=== PATIENT | female | born 1935 | race Caucasian/White ===

== ENCOUNTER 2019-05-31 10:30 | Inpatient (IN) ==
[2019-05-31] MEDS ORDERED: 0.9 % SODIUM CHLORIDE 1,000 ML IV ONE ×2 (10:51→14:43)
--- NOTE | 2019-05-31 10:55 | Emergency Department Note ---
Weakness HPI - General Chief complaint: Weakness Stated complaint: weakness Time Seen by Provider: 05/31/19 10:51 Source: patient, family, old records reviewed Mode of arrival: ambulatory Limitations: altered mental status - History of Present Illness HPI Narrative: 84-year-old female comes in from skilled nursing [place] for altered mental status hypoxia. Oxygen levels there were measured 54 to 72% with cyanosis of the hands and feet. She has not been swallowing well; underlying history of dementia. Blood pressure is a little bit high today pulse is low. He is on Coumadin for chronic atrial fibrillation. She fell yesterday and is now wheelchair-bound. On the left side she is struggling with movement. Globally weak. All history is from her [id number] who was present for the interview and exam. I cannot get any meaningful history or review of systems from the patient. All of her answers are nonsensical. She is globally weak She was actually seen yesterday at [facility] in the ER by Dr. Stark and jordan. Note. CT scan of the head and neck were negative at that time. She was diagnosed with UTI and placed on Keflex-she has received 1 dose of this - Related Data Home Medications Medication Instructions Recorded Confirmed amino acid-multivit w/iron-min 1 tab PO QAM tab 03/25/19 cholecalciferol (vitamin D3) 25 1,000 unit PO QDAY 03/25/19 03/25/19 mcg (1,000 unit) capsule cyanocobalamin (vitamin B-12) 1,000 mcg IM .q3w ml 03/25/19 03/25/19 1,000 mcg/mL injection solution levothyroxine 75 mcg tablet 75 mcg PO QDAY 03/25/19 03/25/19 lisinopril 10 mg tablet 10 mg PO QDAY 03/25/19 03/25/19 melatonin 3 mg tablet 3 mg PO HS PRN 03/25/19 03/25/19 memantine 5 mg tablet 5 mg PO BID tab 03/25/19 03/25/19 metformin 500 mg tablet 500 mg PO BID 03/25/19 03/25/19 omega-3 fatty acids 1,000 mg 1,000 mg PO QDAY 03/25/19 03/25/19 capsule warfarin 3 mg tablet 3 mg PO QDAY 03/25/19 03/25/19 Previous Rx's Medication Instructions Recorded warfarin 3 mg tablet 3 mg PO Q OTHER DAY #30 tab 04/18/19 warfarin 3 mg tablet 4.5 mg PO Q OTHER DAY #30 tab 04/18/19 Allergies Allergy/AdvReac Type Severity Reaction Status Date / Time Sulfa (Sulfonamide Allergy Unknown Unknown Verified 03/25/19 09:58 Antibiotics) Review of Systems Limitations: ROS unobtainable due to patients medical condition Past Medical History - Past Medical History [facility] Narrative: Family History (Last Reviewed 03/25/19 @ 10:03 by Maricarmen Kim PA-C) Sister Arthritis Mother Dementia Father Stroke Medical History (Last Reviewed 03/25/19 @ 10:03 by Maricarmen Kim PA-C) Hearing loss (Chronic) Macular degeneration (Chronic) Thyroid gland disease (Chronic) Stroke (Chronic ~02/2019) High blood pressure (Chronic ~2016) Arrhythmia (Chronic ~2016) Type 2 diabetes mellitus (Chronic ~2015) Non-Hodgkins lymphoma (Chronic ~2012) Arthritis (Chronic ~1999) Past Surgical History (Last Reviewed 03/25/19 @ 10:03 by Maricarmen Kim PA-C) History of bladder surgery (Chronic) History of colonoscopy (Chronic) History of thyroidectomy (Chronic) Source: old records reviewed, obtained from family Medical history: Reports: atrial fibrillation, CVA, dementia, DM, hypertension, hypothyroidism, osteoporosis - Social History smoking status: Never smoker Physical Exam Thin female no acute distress resting comfortably. Normocephalic atraumatic. Conjunctive are laterally injected. No icterus. No nasal discharge or congestion. Oropharynx pink and moist. Neck is supple without lymphadenopathy thyromegaly. Heart is irregularly irregular rhythm consistent with her known atrial fibrillation. I do not hear significant murmur. Lungs are clear to auscultation bilaterally without wheezes rales rhonchi or respiratory distress. Abdomen is soft nontender nondistended. I palpated her right hip joint and I do not detect any pain there. The right leg is a little bit shortened compared to the left approximately half inch or so it is not externally rotated however. She does have a bruised area at the thenar eminence on her left. He does have some mild cyanosis to her ankles but I do not see significant edema. She is alert awake but she cannot answer any questions with any kind of appropriate words-nonsensical and inappropriate Limitations: no limitations Course Vital Signs Blood Pressure 151/138 05/31/19 10:31 Pulse Oximetry (%) 94 05/31/19 10:31 Pulse Rate 119 H 05/31/19 13:01 Respiratory Rate 17 05/31/19 14:01 Blood Pressure 183/111 05/31/19 14:01 Pulse Oximetry (%) 96 05/31/19 13:01 Weakness - Lab Data Lab results reviewed: Yes I reviewed the patient's lab results. Result diagrams: 05/31/19 11:00 05/31/19 12:35 Lab Results 05/31/19 05/31/19 05/31/19 Range/Units 11:00 11:00 11:00 WBC 11.3 H (4.5-11.0) K/mcL RBC 4.91 (4.00-5.20) M/mcL Hgb 15.4 H (12.0-15.0) g/dL Hct 46.7 (36.0-48.0) % POC Hct 48.0 (36.0-48.0) % MCV 95.0 (80.0-100.0) fL MCH 31.3 (26.0-34.0) pg MCHC 32.9 (31.0-36.0) g/dL RDW 15.2 H (11.5-14.5) % Plt Count 222 (140-440) K/mcL MPV 8.5 (7.4-10.4) fL Gran % 86.2 H (38.0-78.0) % Lymph % (Auto) 7.3 L (15.5-49.0) % [place] % (Auto) 6.3 (1.0-12.0) % Eos % (Auto) 0.1 (0.0-7.0) % Baso % (Auto) 0.1 (0.0-2.0) % Gran # 9.7 H (1.8-8.0) K/mcL Lymph # (Auto) 0.8 L (1.5-4.8) K/mcL [place] # (Auto) 0.7 (0.1-0.9) K/mcL Eos # (Auto) 0 (0.0-0.7) K/mcL Baso # (Auto) 0 (0.0-0.3) K/mcL PT 19.2 H (11.9-14.5) sec INR 1.6 H (0.9-1.1) VBG Lactic Acid (0.5-2.0) mmol/L POC Sodium 133 (133-145) mmol/L Sodium TNP POC Potassium 4.7 (3.3-5.1) mmol/L Potassium TNP POC Chloride 99 (96-108) mmol/L Chloride TNP Carbon Dioxide TNP POC Total CO2 22 (22-30) mmol/L Anion Gap TNP POC BUN 42 H (8-23) mg/dl BUN TNP Creatinine TNP POC Creatinine 1.1 (0.6-1.1) mg/dl GFR Calculation TNP Glucose TNP POC Glucose 262 H (70-105) mg/dL Calcium TNP POC WB Ioniz Calcium 1.02 L (1.16-1.32) mmol/L Magnesium 1.4 L (1.6-2.5) mg/dL Total Bilirubin TNP AST TNP ALT TNP Alkaline Phosphatase TNP Total Protein TNP Albumin TNP Globulin TNP Albumin/Globulin Ratio TNP Urine Color Urine Appearance Urine pH (5.0-9.0) Ur Specific [place] (1.000-1.035) Urine Protein (NEG) mg/dL Urine Glucose (UA) (NEG) mg/dL Urine Ketones (NEG) mg/dL Urine Occult Blood (<0.03) mg/dL Urine Nitrate (NEG) Urine Bilirubin (NEG) mg/dL Urine Urobilinogen (NEG) mg/dL Ur Leukocyte Esterase (NEG) /uL Urine RBC (0-1) /hpf Urine WBC (0-4) /hpf Ur Squamous Epith Cells (0-4) /hpf Urine Bacteria (0) /hpf Hyaline Casts (0-2) /lpf Urine Mucus (0) /hpf Ur Culture Indicated? 05/31/19 05/31/19 05/31/19 Range/Units 11:00 11:50 12:35 WBC (4.5-11.0) K/mcL RBC (4.00-5.20) M/mcL Hgb (12.0-15.0) g/dL Hct (36.0-48.0) % POC Hct (36.0-48.0) % MCV (80.0-100.0) fL MCH (26.0-34.0) pg MCHC (31.0-36.0) g/dL RDW (11.5-14.5) % Plt Count (140-440) K/mcL MPV (7.4-10.4) fL Gran % (38.0-78.0) % Lymph % (Auto) (15.5-49.0) % [place] % (Auto) (1.0-12.0) % Eos % (Auto) (0.0-7.0) % Baso % (Auto) (0.0-2.0) % Gran # (1.8-8.0) K/mcL Lymph # (Auto) (1.5-4.8) K/mcL [place] # (Auto) (0.1-0.9) K/mcL Eos # (Auto) (0.0-0.7) K/mcL Baso # (Auto) (0.0-0.3) K/mcL PT (11.9-14.5) sec INR (0.9-1.1) VBG Lactic Acid 2.3 H (0.5-2.0) mmol/L POC Sodium (133-145) mmol/L Sodium 136 POC Potassium (3.3-5.1) mmol/L Potassium 4.4 POC Chloride (96-108) mmol/L Chloride 92 L Carbon Dioxide 23 POC Total CO2 (22-30) mmol/L Anion Gap 21.0 H POC BUN (8-23) mg/dl BUN 30 H Creatinine 1.2 H POC Creatinine (0.6-1.1) mg/dl GFR Calculation 41 Glucose 227 H POC Glucose (70-105) mg/dL Calcium 9.9 POC WB Ioniz Calcium (1.16-1.32) mmol/L Magnesium (1.6-2.5) mg/dL Total Bilirubin 0.9 AST 24 ALT 21 Alkaline Phosphatase 85 Total Protein 8.4 Albumin 4.3 Globulin 4.1 H Albumin/Globulin Ratio 1.0 Urine Color Yellow Urine Appearance Cloudy Urine pH 5.0 (5.0-9.0) Ur Specific [place] 1.015 (1.000-1.035) Urine Protein >=500 A (NEG) mg/dL Urine Glucose (UA) 50 A (NEG) mg/dL Urine Ketones 20 A (NEG) mg/dL Urine Occult Blood 0.03 A (<0.03) mg/dL Urine Nitrate Neg (NEG) Urine Bilirubin Neg (NEG) mg/dL Urine Urobilinogen Neg (NEG) mg/dL Ur Leukocyte Esterase 500 A (NEG) /uL Urine RBC 6 H (0-1) /hpf Urine WBC > 182 H (0-4) /hpf Ur Squamous Epith Cells 1 (0-4) /hpf Urine Bacteria Mod A (0) /hpf Hyaline Casts 6 H (0-2) /lpf Urine Mucus Few (0) /hpf Ur Culture Indicated? Yes ABG shows a pH of 7.54 PCO2 26 PO2 86 which is consistent with hyperventilation- she is not requiring oxygen at this time - Radiology Data Radiology results reviewed: Yes I reviewed the patient's radiology results. Chest x-ray with atelectasis chronic bronchitis Right hip x-ray essentially normal - EKG Data EKG attestation: Yes I reviewed and interpreted this EKG., Yes There are no EKG findings of acute coronary syndrome, Yes This EKG will be read by senior control systems engineer EKG results narrative: EKG shows a rate of 132 atrial fibrillation with rapid ventricular response. LVH criteria with secondary repolarization Disposition Pt seen by DRUM STOCK CLERK/PA only: No Clinical Impression: UTI (urinary tract infection) Qualifiers: Urinary tract infection type: acute cystitis Hematuria presence: with hematuria Qualified Code(s): N30.01 - Acute cystitis with hematuria A-fib Qualifiers: Atrial fibrillation type: longstanding persistent Qualified Code(s): I48.11 - Longstanding persistent atrial fibrillation Summary: Partially treated UTI here now with hypoxia per report. We will check a chest x-ray to rule out pneumonia which could be aspiration. Additionally she has a hip issue which may or may not be fractured however this is less likely given her exam. Her right leg is foreshortened but not externally rotated not particularly painful on exam. I will not repeat the CT of the head and neck as these were negative yesterday at [facility]. Laboratory is ordered as is chest x-ray and x-ray of the hip. Start IV fluids blood cultures and give IV antibiotics We will monitor her atrial fibrillation and treat rapid ventricular response if needed She remained stable during her ER stay here but she has failed outpatient therapy with clear evidence of a UTI here. Rocephin given here Discussed case with Dr. Caldwell, hospitalist. He agreed to accept the patient for further care and evaluation here in the hospital for complicated UTI with altered mental status. Disposition: Xfer As Inpt ([facility]) Condition: Fair Referrals: Maricarmen Kim PA-C [Primary Care Provider] -
[2019-05-31] MEDS ORDERED: cefTRIAXone 1 GM VIAL IV ONE (11:04)
[2019-05-31 11:10] LABS: POC Blood Urea Nitrogen 42 mg/dl (8-23); POC CO2 22 mmol/L (22-30); POC Calcium, Ionized 1.02 mmol/L (1.16-1.32); POC Chloride 99 mmol/L (96-108); POC Creatinine 1.1 mg/dl (0.6-1.1); POC Glucose, Random 262 mg/dL (70-105); POC Potassium 4.7 mmol/L (3.3-5.1); POC Sodium 133 mmol/L (133-145)
--- NOTE | 2019-05-31 11:47 | XRay Report ---
CLINICAL INFORMATION: fall, hip pain COMPARISON: None. FINDINGS: No fracture or other osseous abnormality appreciated. Both SI and hip joints are normal in width and alignment without arthritic change. Soft tissues normal IMPRESSION: Normal Interpreted and Authenticated by: Hugo Torre 05/31/19
--- NOTE | 2019-05-31 11:48 | XRay Report ---
CLINICAL INFORMATION: hypoxia , altered mental status COMPARISON: None. FINDINGS: The heart is mildly enlarged. Mediastinum and pulmonary vessels are normal. Chronic bronchitis appreciated. There is minor atelectasis in the right base, but the remainder lungs are clear. No effusions. Bones and soft tissues normal. IMPRESSION: Mild cardiomegaly - no evidence of CHF Minor right basilar atelectasis Chronic bronchitis Interpreted and Authenticated by: Hugo Torre 05/31/19
[2019-05-31 11:56] LABS: INR 1.6 (0.9-1.1); Prothrombin Time 19.2 sec (11.9-14.5)
[2019-05-31 12:01] LABS: Basophils # (Auto) 0 K/mcL (0.0-0.3); Basophils % (Auto) 0.1 % (0.0-2.0); Eosinophils # (Auto) 0 K/mcL (0.0-0.7); Eosinophils % (Auto) 0.1 % (0.0-7.0); Granulocytes % (Auto) 86.2 % (38.0-78.0); Hematocrit 46.7 % (36.0-48.0); Hemoglobin 15.4 g/dL (12.0-15.0); Lymphocytes # (Auto) 0.8 K/mcL (1.5-4.8); Lymphocytes % (Auto) 7.3 % (15.5-49.0); Mean Corpuscular HGB Conc 32.9 g/dL (31.0-36.0); Mean Platelet Volume 8.5 fL (7.4-10.4); Monocytes # (Auto) 0.7 K/mcL (0.1-0.9); Monocytes % (Auto) 6.3 % (1.0-12.0); Platelet Count 222 K/mcL (140-440); RBC 4.91 M/mcL (4.00-5.20); Red Cell Distribution Width 15.2 % (11.5-14.5); WBC 11.3 K/mcL (4.5-11.0)
[2019-05-31 12:51] LABS: Appearance,Urine CLOUDY; Bacteria,Urine MOD /hpf (0); Bilirubin,Urine NEG (NEG); Color,Urine YELLOW; Culture Indicated,Urine YES; Glucose,Urine (UA) 50 mg/dL (NEG); Ketones,Urine 20 mg/dL (NEG); Leukocyte Esterase,Urine 500 /uL (NEG); Mucus,Urine FEW /hpf (0); Nitrate,Urine NEG (NEG); Protein,Urine >=500 mg/dL (NEG); Specific Gravity,Urine 1.015 (1.000-1.035); Urine Blood 0.03 mg/dL (<0.03); Urine Hyaline Cast 6 /lpf (0-2); Urine RBC 6 /hpf (0-1); Urine Squamous Epithelial Cell 1 /hpf (0-4); Urine WBC > 182 /hpf (0-4); Urobilinogen,Urine NEG (NEG)
[2019-05-31 13:41] LABS: ALT/SGPT 21 U/l (0-40); AST/SGOT 24 U/l (0-37); Albumin 4.3 gm/dL (3.2-5.2); Alkaline Phosphatase 85 U/L (39-117); Bilirubin,Total 0.9 mg/dL (0.0-1.0); Blood Urea Nitrogen 30 mg/dl (8-23); Calcium 9.9 mg/dl (8.6-10.4); Globulin 4.1 gm/dL (2.2-3.7); Glomerular Filtration Rate 41; Glucose 227 mg/dL (70-105)
[2019-05-31 13:44] LABS: Carbon Dioxide 23 mmol/L (22-30); Chloride 92 mmol/L (96-108)
[2019-05-31] MEDS ORDERED: MAGNESIUM SULFATE 2 GM/50 ML BAG IV ONE (14:37)
--- NOTE | 2019-05-31 14:56 | Internal Med History&Physical ---
Medical - H&P: [facility] Patient information: Note initiated : 05/31/19 at 2:54 pm Service Date, if different from initiated Date: [] Patient: Bel Dudley 84 y/o F admitted on for weakness. Chief Complaint: [] History of present illness: Ms. Dudley is a 84 year old F Who fell recently and was brought into the ED at [facility] where she was evaluated had CT of the head and neck which were negative. She was found to have a UTI and was recommended to be in a wheelchair for the next few days. Sent back in from [place] for worsening altered mental status and hypoxia. However her oxygen saturations were mid mid 90s on room air while here. She was have not found to have a UTI and volume depleted. She did have a brief episode of A. fib RVR which resolved on its own. She is also low on her magnesium. And her lactate was mildly elevated. Chest x-ray with some atelectasis but otherwise unremarkable. History is obtained from chart as patient is unable to give any history given her dementia and current state. Also had x-ray of the hip which was unremarkable. Unable to gather review of systems given her underlying dementia Medical - H&P: H Medical history: Medical History (Last Reviewed 03/25/19 @ 10:03 by Maricarmen Kim PA-C) Hearing loss (Chronic) Macular degeneration (Chronic) Thyroid gland disease (Chronic) Stroke (Chronic ~02/2019) High blood pressure (Chronic ~2016) Arrhythmia (Chronic ~2016) Type 2 diabetes mellitus (Chronic ~2015) Non-Hodgkins lymphoma (Chronic ~2012) Arthritis (Chronic ~1999) Past Surgical History (Last Reviewed 03/25/19 @ 10:03 by Maricarmen Kim PA-C) History of bladder surgery (Chronic) History of colonoscopy (Chronic) History of thyroidectomy (Chronic) Family History (Last Reviewed 03/25/19 @ 10:03 by Maricarmen Kim PA-C) Sister Arthritis Mother Dementia Father Stroke Social History (Last Updated 03/25/19 @ 10:36 by Maricarmen Kim PA-C) She resides at [facility] living [facility] She is wheelchair-bound since falling the other day, unknown what her underlying functional status is. Medical - H&P: Meds Home Medications Medication Instructions Recorded Confirmed Type amino acid-multivit w/iron-min 1 tab PO QAM tab 10/15/19 History cholecalciferol (vitamin D3) 25 1,000 unit PO QDAY 03/25/19 03/25/19 History mcg (1,000 unit) capsule cyanocobalamin (vitamin B-12) 1,000 mcg IM .q3w ml 03/25/19 03/25/19 History 1,000 mcg/mL injection solution levothyroxine 75 mcg tablet 75 mcg PO QDAY 03/25/19 03/25/19 History lisinopril 10 mg tablet 10 mg PO QDAY 03/25/19 03/25/19 History melatonin 3 mg tablet 3 mg PO HS PRN 03/25/19 03/25/19 History memantine 5 mg tablet 5 mg PO BID tab 03/25/19 03/25/19 History metformin 500 mg tablet 500 mg PO BID 03/25/19 03/25/19 History omega-3 fatty acids 1,000 mg 1,000 mg PO QDAY 03/25/19 03/25/19 History capsule warfarin 3 mg tablet 3 mg PO QDAY 03/25/19 03/25/19 History warfarin 3 mg tablet 3 mg PO Q OTHER DAY #30 tab 04/18/19 Rx warfarin 3 mg tablet 4.5 mg PO Q OTHER DAY #30 tab 04/18/19 Rx Allergies Allergy/AdvReac Type Severity Reaction Status Date / Time Sulfa (Sulfonamide Allergy Unknown Unknown Verified 03/25/19 09:58 Antibiotics) Medical - H&P: Exam - Constitutional Vitals: Pulse Resp BP Pulse Ox 119 H 17 183/111 96 05/31/19 13:01 05/31/19 14:01 05/31/19 14:01 05/31/19 13:01 Exam: General: Awake, No acute Distress Eyes/N/T: EOMI, PERRL, dMM Head/Neck: neck supple, normocephalic atraumatic CV: irreg irreg, No murmurs, Pulm: Clear b/l, no wheezing/rhonchi/rales Abd: soft, nontender, +BS x4 Ext: no clubbing/cyanosis/edema Neuro: She is awake and moves all extremities spontaneously, does not verbalize any meaningful responses and does not really follow commands Skin: warm/dry Medical - H&P: Reslt - Labs CBC & Chem 7: 05/31/19 11:00 05/31/19 12:35 Labs: Short CBC 05/31/19 Range/Units 11:00 WBC 11.3 H (4.5-11.0) K/mcL Hgb 15.4 H (12.0-15.0) g/dL Hct 46.7 (36.0-48.0) % Plt Count 222 (140-440) K/mcL BMP 05/31/19 05/31/19 11:00 12:35 Sodium TNP 136 Potassium TNP 4.4 Chloride TNP 92 L Carbon Dioxide TNP 23 BUN TNP 30 H Creatinine TNP 1.2 H Glucose TNP 227 H Calcium TNP 9.9 Liver Function 05/31/19 05/31/19 Range/Units 11:00 12:35 Total Bilirubin TNP 0.9 AST TNP 24 ALT TNP 21 Alkaline Phosphatase TNP 85 Albumin TNP 4.3 Urine 05/31/19 Range/Units 11:50 Urine Color Yellow Urine Appearance Cloudy Urine pH 5.0 (5.0-9.0) Ur Specific [place] 1.015 (1.000-1.035) Urine Protein >=500 A (NEG) mg/dL Urine Glucose (UA) 50 A (NEG) mg/dL Medical - H&P: A/P - Narrative A/P Narrative: A: *UTI, complicated with severe weakness, acute on chronic AMS, and lactic acidosis *Sepsis: *Afib rvr: resolved in ED *Hypomagnesemia: *PETER on CKD III: *Volume depletion: *Dementia: *Hypothyroidism: *HTN: * P: -IVF -Rocephin, pending UC -Replace electrolytes - -Continue home lisinopril, as needed BP meds -start BB and prn IV -Check A1c, SSI -pt/ot -ppx: Warfarin per pharmacy
[2019-05-31] MEDS ORDERED: DEXTROSE 50% 50 ML VIAL IV PRN (16:54)
[2019-05-31] MEDS ORDERED: POTASSIUM CHLORIDE 20 MEQ TABLET PO PRN (16:54)
[2019-05-31] MEDS ORDERED: SENNOSIDES 1 TABLET PO PRN (16:54)
[2019-05-31] MEDS ORDERED: IPRATROPIUM/ALBUTEROL 3 ML AMPUL.NEB NEB PRN (16:54)
[2019-05-31] MEDS ORDERED: POTASSIUM CHLORIDE 40 MEQ in DEXTROSE 5% IN WATER 500 ML IV PRN (16:54)
[2019-05-31] MEDS ORDERED: ENOXAPARIN 30 MG/0.3 ML SYRINGE SQ SCH (16:54)
[2019-05-31] MEDS ORDERED: POLYETHYLENE GLYCOL 3350 17 GM PACKET PO PRN (16:54)
[2019-05-31] MEDS ORDERED: DEXTROSE 31 GM ORAL.SUSP PO PRN (16:54)
[2019-05-31] MEDS ORDERED: cefTRIAXone 1 GM in DEXTROSE 5% IN WATER 50 ML IV SCH (16:54)
[2019-05-31] MEDS ORDERED: ACETAMINOPHEN 325 MG TABLET PO PRN (16:54)
[2019-05-31] MEDS ORDERED: METOPROLOL TARTRATE 25 MG TABLET PO SCH (16:54)
[2019-05-31] MEDS ORDERED: MAGNESIUM SULFATE 2 GM/50 ML BAG IV PRN (16:54)
[2019-05-31] MEDS ORDERED: METOPROLOL TARTRATE 5 MG/5 ML VIAL IV PRN (16:54)
[2019-05-31] MEDS ORDERED: ONDANSETRON 4 MG/2 ML VIAL IV PRN (16:54)
[2019-05-31] MEDS: 0.9 % SODIUM CHLORIDE 1,000 ML IV SCH (17:21)
[2019-05-31] MEDS ORDERED: MELATONIN 3 MG TABLET PO PRN (17:24)
[2019-05-31] MEDS ORDERED: WARFARIN 3 MG TABLET PO SCH (17:30)
[2019-05-31] MEDS ORDERED: METOPROLOL TARTRATE 5 MG/5 ML VIAL IV ONE (17:39)
[2019-05-31] MEDS: 0.9 % SODIUM CHLORIDE 10 ML SYRINGE IV SCH ×2 (17:40→21:17)
[2019-05-31 17:52] LABS: Hemoglobin A1C 8.6 % HGB (4.0-6.0)
[2019-05-31] MEDS ORDERED: WARFARIN 3 MG TABLET PO ONE (18:30)
[2019-05-31] MEDS ORDERED: METOPROLOL TARTRATE 25 MG TABLET ONE (18:42)
[2019-05-31] MEDS: INSULIN LISPRO 1 UNIT/0.01 ML UNIT SQ SCH ×2 (18:44→21:15)
[2019-05-31] MEDS: DOCUSATE SODIUM 100 MG CAPSULE PO SCH (21:13)
[2019-05-31] MEDS: LABETALOL 5 MG/ML ML IV PRN (22:05)
[2019-06-01] MEDS: LABETALOL 5 MG/ML ML IV PRN ×3 (00:19→04:56)
[2019-06-01] MEDS: 0.9 % SODIUM CHLORIDE 10 ML SYRINGE IV SCH ×3 (04:48→20:25)
[2019-06-01] MEDS: METOPROLOL SUCCINATE 50 MG TAB.XL.24H PO SCH ×2 (04:57→09:04)
[2019-06-01 06:23] LABS: Basophils # (Auto) 0 K/mcL (0.0-0.3); Basophils % (Auto) 0.1 % (0.0-2.0); Eosinophils # (Auto) 0.1 K/mcL (0.0-0.7); Eosinophils % (Auto) 1.5 % (0.0-7.0); Granulocytes % (Auto) 75.5 % (38.0-78.0); Hematocrit 40.8 % (36.0-48.0); Hemoglobin 13.3 g/dL (12.0-15.0); Lymphocytes # (Auto) 1.2 K/mcL (1.5-4.8); Lymphocytes % (Auto) 15.2 % (15.5-49.0); Mean Cell Volume 95.6 fL (80.0-100.0); Mean Corpuscular HGB Conc 32.6 g/dL (31.0-36.0); Mean Platelet Volume 8.3 fL (7.4-10.4); Monocytes # (Auto) 0.6 K/mcL (0.1-0.9); Monocytes % (Auto) 7.7 % (1.0-12.0); Platelet Count 173 K/mcL (140-440); RBC 4.27 M/mcL (4.00-5.20); Red Cell Distribution Width 14.9 % (11.5-14.5); WBC 7.9 K/mcL (4.5-11.0)
[2019-06-01 06:36] LABS: INR 2.5 (0.9-1.1); Prothrombin Time 26.6 sec (11.9-14.5)
[2019-06-01 06:51] LABS: Chloride 96 mmol/L (96-108)
[2019-06-01] MEDS: 0.9 % SODIUM CHLORIDE 1,000 ML IV SCH (06:53)
[2019-06-01 06:57] LABS: ALT/SGPT 17 U/l (0-40); AST/SGOT 25 U/l (0-37); Albumin 3.5 gm/dL (3.2-5.2); Albumin/Globulin Ratio 1.1 (1.0-2.3); Alkaline Phosphatase 71 U/L (39-117); Bilirubin,Direct 0.2 mg/dL (0.0-0.3); Blood Urea Nitrogen 24 mg/dl (8-23); Calcium 8.8 mg/dl (8.6-10.4); Carbon Dioxide 25 mmol/L (22-30); Globulin 3.2 gm/dL (2.2-3.7); Glomerular Filtration Rate 67; Glucose 223 mg/dL (70-105); Lactate Dehydrogenase 216 U/L (94-250); Phosphorous 2.7 mg/dL (2.7-4.5); Triglycerides 70 mg/dl (<150); Uric Acid 5.7 mg/dL (2.5-8.0)
[2019-06-01] MEDS: INSULIN LISPRO 1 UNIT/0.01 ML UNIT SQ SCH ×4 (07:35→20:25)
[2019-06-01] MEDS: LEVOTHYROXINE 75 MCG TABLET PO SCH (07:36)
--- NOTE | 2019-06-01 08:02 | Internal Med Progress Note ---
Medical - PN: Subj Patient information: Note initiated : 06/01/19 at 7:57 am Service Date, if different from initiated Date: [] Patient: Bel Dudley 84 y/o F admitted on 05/31/19 for weakness. Chief Complaint: [] Interval history: Ms. Dudley is a 84 year old F Who fell recently and was brought into the ED at [facility] where she was evaluated had CT of the head and neck which were negative. She was found to have a UTI and was recommended to be in a wheelchair for the next few days. Sent back in from [place] for worsening altered mental status and hypoxia. However her oxygen saturations were mid mid 90s on room air while here. She was have not found to have a UTI and volume depleted. She did have a brief episode of A. fib RVR which resolved on its own. She is also low on her magnesium. A nd her lactate was mildly elevated. Chest x-ray with some atelectasis but otherwise unremarkable. History is obtained from chart as patient is unable to give any history given her dementia and current state. Also had x-ray of the hip which was unremarkable. Unable to gather review of systems given her underlying dementia 06/01 Did have some agitation and yelling last night. Doing well this morning and mentation much improved. Daughter at bedside. Urine culture growing gram- negative bacillus Review of Systems: denies headache/fever/chills/nausea/vomiting/chest or abdominal pain/cough/d yspnea/diarrhea. Otherwise see above. - Constitutional Vitals: Vital Signs Temp Pulse Resp BP Pulse Ox 98.5 F 106 H 16 157/105 97 06/01/19 02:46 06/01/19 06:55 06/01/19 06:55 06/01/19 02:46 06/01/19 06:55 Period Temp Pulse Resp BP Sys/Jara Pulse Ox Last 24 Hr 97.9 F-98.9 F 44-119 13-33 138-188/90-140 93-100 Intake and Output 05/31/19 06/01/19 06/01/19 21:59 05:59 13:59 Intake Total 50 400 1000 Output Total 300 Balance 50 100 1000 Weight 51.71 kg Intake & Output: Intake & Output 05/31/19 06/01/19 06/01/19 21:59 05:59 13:59 Intake Total 50 400 1000 Output Total 300 Balance 50 100 1000 Weight 51.71 kg Intake: IV 50 1000 Sodium Chloride 0.9% 1,000 ml @ 1000 75 mls/hr IV .[id number] [facility] Rx#: [id number] Oral 400 Output: Urine Catheter Amount 300 Other: Urine Appearance Cloudy Clear Clear Uretheral ([place]) Cloudy Cloudy Urine Color Dark Yellow Bright Yellow Dark Yellow Uretheral ([place]) Straw Straw Urine Odor Strong Normal Normal Uretheral ([place]) Foul Exam: General: Awake, No acute Distress Eyes/N/T: EOMI, Head/Neck: neck supple, CV: irreg irreg, No murmurs, Pulm: Clear b/l, no wheezing/rhonchi/rales Abd: soft, nontender, +BS x4 Ext: no clubbing/cyanosis/edema Neuro: Mentation much improved and answering questions appropriately, moves extremities spontaneously Skin: warm/dry Medical - PN: Obj Da - Labs CBC & Chem 7: 06/01/19 04:30 06/01/19 04:30 Labs: Abnormal Lab Results 06/01/19 06/01/19 06/01/19 04:30 04:30 04:30 WBC Hgb RDW 14.9 H Gran % Lymph % (Auto) 15.2 L Gran # Lymph # (Auto) 1.2 L PT 26.6 H INR 2.5 H VBG Lactic Acid Chloride Anion Gap POC BUN BUN 24 H Creatinine Glucose 223 H POC Glucose Hemoglobin A1c POC WB Ioniz Calcium Magnesium Globulin Urine Protein Urine Glucose (UA) Urine Ketones Urine Occult Blood Ur Leukocyte Esterase Urine RBC Urine WBC Urine Bacteria Hyaline Casts 05/31/19 05/31/19 05/31/19 12:35 11:50 11:00 WBC Hgb RDW Gran % Lymph % (Auto) Gran # Lymph # (Auto) PT INR VBG Lactic Acid Chloride 92 L Anion Gap 21.0 H POC BUN BUN 30 H Creatinine 1.2 H Glucose 227 H POC Glucose Hemoglobin A1c 8.6 H POC WB Ioniz Calcium Magnesium Globulin 4.1 H Urine Protein >=500 A Urine Glucose (UA) 50 A Urine Ketones 20 A Urine Occult Blood 0.03 A Ur Leukocyte Esterase 500 A Urine RBC 6 H Urine WBC > 182 H Urine Bacteria Mod A Hyaline Casts 6 H 05/31/19 05/31/19 05/31/19 11:00 11:00 11:00 WBC Hgb RDW Gran % Lymph % (Auto) Gran # Lymph # (Auto) PT 19.2 H INR 1.6 H VBG Lactic Acid 2.3 H Chloride Anion Gap POC BUN 42 H BUN Creatinine Glucose POC Glucose 262 H Hemoglobin A1c POC WB Ioniz Calcium 1.02 L Magnesium 1.4 L Globulin Urine Protein Urine Glucose (UA) Urine Ketones Urine Occult Blood Ur Leukocyte Esterase Urine RBC Urine WBC Urine Bacteria Hyaline Casts 05/31/19 11:00 WBC 11.3 H Hgb 15.4 H RDW 15.2 H Gran % 86.2 H Lymph % (Auto) 7.3 L Gran # 9.7 H Lymph # (Auto) 0.8 L PT INR VBG Lactic Acid Chloride Anion Gap POC BUN BUN Creatinine Glucose POC Glucose Hemoglobin A1c POC WB Ioniz Calcium Magnesium Globulin Urine Protein Urine Glucose (UA) Urine Ketones Urine Occult Blood Ur Leukocyte Esterase Urine RBC Urine WBC Urine Bacteria Hyaline Casts Meds: Medications Acetaminophen (Tylenol) 650 mg PO Q6HP PRN PRN Reason: PAIN/FEVER > 101 Albuterol/Ipratropium (Duoneb) 3 ml NEB Q4HP PRN PRN Reason: Shortness Of Breath Ceftriaxone Sodium (Rocephin) 1 gm IV DAILY [facility] Dextrose (Dextrose 50%) 0 ml IV UD PRN PRN Reason: Hypoglycemia Diagnostic Test (Pha) (Accu-Chek) 1 each FS ACHS [facility] Last Admin: 06/01/19 07:21 Dose: 1 each Documented by: Docusate Sodium (Colace) 100 mg PO BID [facility] Last Admin: 05/31/19 21:13 Dose: 100 mg Documented by: Enoxaparin Sodium (Lovenox) 30 mg SQ DAILY [facility] Stop: 06/02/19 09:01 Last Admin: 05/31/19 18:44 Dose: 30 mg Documented by: Glucose (Insta-Glucose) 15 gm PO PRN PRN PRN Reason: Hypoglycemia Potassium Chloride 40 meq/ (Dextrose) 520 mls @ 130 mls/hr IV UD PRN PRN Reason: Potassium < 3 Magnesium Sulfate (Magnesium Sulfate) 2 gm in 50 mls @ 50 mls/hr IV UD PRN PRN Reason: Magnesium </= 1.6 Sodium Chloride (Sodium Chloride 0.9%) 1,000 mls @ 75 mls/hr IV .[id number] [facility] Stop: 06/01/19 19:33 Last Admin: 06/01/19 06:53 Dose: 75 mls/hr Documented by: Insulin Human Lispro (Humalog) 0 unit SQ ACHS [facility]; Protocol Last Admin: 06/01/19 07:35 Dose: 4 units Documented by: Labetalol HCl (Trandate) 0 mg IV Q2HP PRN PRN Reason: Hypertension Last Admin: 06/01/19 04:56 Dose: 10 mg Documented by: Levothyroxine Sodium (Synthroid) 75 mcg PO ACB [facility] Last Admin: 06/01/19 07:36 Dose: 75 mcg Documented by: Lisinopril (Zestril) 10 mg PO QAM [facility] Melatonin (Melatonin 3mg Tablet) 3 mg PO HSP PRN PRN Reason: Insomnia Memantine (Namenda) 5 mg PO DAILY [facility] Metoprolol Succinate (Toprol Xl) 50 mg PO QAM [facility] Last Admin: 06/01/19 04:57 Dose: 50 mg Documented by: Metoprolol Tartrate (Lopressor) 5 mg IV Q2HP PRN PRN Reason: Tachyarrhythmias HR>110 Ondansetron HCl (Zofran) 4 mg IV Q4HP PRN PRN Reason: Nausea And Vomiting Polyethylene Glycol (Miralax) 17 gm PO DAILYP PRN PRN Reason: Constipation Potassium Chloride (Kdur) 40 meq PO UD PRN PRN Reason: Potssium is 3-3.5 Potassium Chloride (Kdur) 40 meq PO UD PRN PRN Reason: Potassium < 3 Senna (Senokot) 2 tab PO DAILYP PRN PRN Reason: Constipation Sodium Chloride (Saline Flush) 10 ml IV Q8 [facility] Last Admin: 06/01/19 04:48 Dose: Not Given Documented by: Warfarin Sodium (Coumadin Per Pharmacy) 1 order PO DAILY@1400 [facility] Medical - PN: A/P - Time Spent With Patient Total time spent is greater than 50% in coordination of care (as documented) at patient's floor/unit and/or counseling patient: - Narrative A/P Narrative: A: *UTI(GNB), complicated with severe weakness, acute on chronic AMS, and lactic acidosis *Sepsis: -improved *Afib rvr: resolved in ED *Hypomagnesemia: improved *PETER on CKD III: improving *Volume depletion: improved *Dementia, advanced: *Hypothyroidism: *HTN: *DM II: P: -IVF finish -Rocephin, pending UC -Replace electrolytes - -Continue home lisinopril, as needed BP meds -cont home BB and prn IV -SSI, metformin held for now -pt/ot -ppx: Warfarin per pharmacy
[2019-06-01] MEDS: LISINOPRIL 10 MG TABLET PO SCH (09:03)
[2019-06-01] MEDS: MEMANTINE 10 MG TABLET PO SCH (09:03)
[2019-06-01] MEDS: DOCUSATE SODIUM 100 MG CAPSULE PO SCH ×2 (09:03→20:36)
[2019-06-01] MEDS: cefTRIAXone 1 GM VIAL IV SCH (09:04)
--- NOTE | 2019-06-01 12:13 | Discharge Summary ---
Medical - DS: Prov Patient information: Note initiated : 06/01/19 at 12:10 pm Service Date, if different from initiated Date: [] Patient: Bel Dudley 84 y/o F admitted on 05/31/19 for weakness. Chief Complaint: [] Date of admission: 05/31/19 16:20 Discharge date: 06/02/19 Primary care physician: Maricarmen Kim PA-C Consults: 05/31/19 14:39 Consult to Physician [CONS] Stat Comment: Consulting Provider: Jos Caldwell Reason For Exam: Physician to Consult Medical - DS: Meds - Discharge Medications Prescriptions: Ciprofloxacin HCl [Cipro] 500 mg PO BID #6 tab Active and Home Medications: Home Medications amino acid-multivit w/iron-min 1 tab PO QAM tab 03/25/19 [History Last Taken Unknown] cholecalciferol (vitamin D3) 25 mcg (1,000 unit) capsule 1,000 unit PO QDAY 03/25/19 [History Confirmed 05/31/19 Last Taken Unknown] cyanocobalamin (vitamin B-12) 1,000 mcg/mL injection solution 1,000 mcg IM .q3w ml 03/25/19 [History Confirmed 05/31/19 Last Taken Unknown] levothyroxine 75 mcg tablet 75 mcg PO QDAY 03/25/19 [History Confirmed 05/31/19 Last Taken Unknown] lisinopril 10 mg tablet 10 mg PO QAM 03/25/19 [History Confirmed 05/31/19 Last Taken Unknown] melatonin 3 mg tablet 3 mg PO HS PRN 03/25/19 [History Confirmed 05/31/19 Last Taken Unknown] memantine 5 mg tablet 5 mg PO QAM tab 03/25/19 [History Confirmed 05/31/19 Last Taken Unknown] metformin 500 mg tablet 1,000 mg PO BID 03/25/19 [History Confirmed 05/31/19 Last Taken Unknown] omega-3 fatty acids 1,000 mg capsule 1,000 mg PO QDAY 03/25/19 [History Con firmed 05/31/19 Last Taken Unknown] warfarin 3 mg tablet 3 mg PO Q48 03/25/19 [History Confirmed 05/31/19 Last Taken Unknown] warfarin 3 mg tablet 4.5 mg PO Q OTHER DAY #30 tab 04/18/19 [Rx Confirmed 05/31/19 Last Taken Unknown] Metoprolol Succinate [Toprol Xl] 50 mg PO QAM 05/31/19 [History Confirmed 05/31/19 Last Taken Unknown] Warfarin [Coumadin] 1.5 mg PO Q OTHER DAY 05/31/19 [History Last Taken Unknown] Medical - DS: Hosp Hospital Course: Ms. Dudley is a 84 year old F Who fell recently and was brought into the ED at [facility] where she was evaluated had CT of the head and neck which were negative. She was found to have a UTI and was recommended to be in a wheelchair for the next few days. Sent back in from [place] for worsening altered mental status and hypoxia. However her oxygen saturations were mid mid 90s on room air while here. She was have not found to have a UTI and volume depleted. She did have a brief episode of A. fib RVR which resolved on its own. She is also low on her magnesium. And her lactate was mildly elevated. Chest x-ray with some atelectasis but otherwise unremarkable. History is obtained from chart as patient is unable to give any history given her dementia and current state. Also had x-ray of the hip which was unremarkable. Unable to gather review of systems given her underlying dementia 06/01 Did have some agitation and yelling last night. Doing well this morning and mentation much improved. Daughter at bedside. Urine culture growing gram- negative bacillus 06/02 No events overnight. Doing well. Per the cultures from [facility], urine growing E. coli pansensitive. A: *UTI(E. coli), complicated with severe weakness, acute on chronic AMS, and lactic acidosis *Sepsis: -improved *Afib rvr: resolved in ED *Hypomagnesemia: improved *PETER on CKD III: improved *Volume depletion: improved *Dementia, advanced: *Hypothyroidism: *HTN: *DM II: Discharge diagnosis: Complicated UTI sepsis A. fib RVR electrolyte abnormalities PETER Secondary discharge diagnosis: Volume depletion advanced dementia hypothyroidism hypertension diabetes - Time Spent with Patient Total time spent providing and/or coordinating discharge services: Greater than 30 minutes Medical - DS: Exam - Constitutional Vitals: Vital Signs Temp Pulse Pulse Resp BP BP Pulse Ox 06/01/19 09:00 98.7 F 97 H 20 145/98 97 06/01/19 06:55 106 H 16 97 06/01/19 02:46 98.5 F 106 H 20 157/105 97 06/01/19 00:59 95 H 138/92 05/31/19 23:41 98.5 F 100 H 16 161/103 98 05/31/19 21:25 98.9 F 100 H 16 156/108 99 05/31/19 17:48 165/103 98 05/31/19 16:25 116 H 97 05/31/19 16:20 97.9 F 116 H 16 166/94 97 05/31/19 16:01 77 15 156/90 93 05/31/19 15:46 106 H 14 177/122 100 05/31/19 15:35 13 05/31/19 15:31 118 H 17 171/119 100 05/31/19 15:21 16 182/126 05/31/19 15:16 18 186/116 05/31/19 15:01 22 180/117 05/31/19 14:46 110 H 27 H 174/106 100 05/31/19 14:31 33 H 156/105 05/31/19 14:18 21 155/128 05/31/19 14:16 18 188/133 05/31/19 14:01 17 183/111 05/31/19 13:31 15 173/140 05/31/19 13:16 14 154/99 05/31/19 13:01 119 H 28 H 158/96 96 05/31/19 12:46 17 171/123 Intake and Output 05/31/19 06/01/19 06/01/19 21:59 05:59 13:59 Intake Total 50 400 1000 Output Total 300 Balance 50 100 1000 Intake: IV 50 1000 Sodium Chloride 0.9% 1,000 ml @ 1000 75 mls/hr IV .[id number] [facility] Rx#: [id number] Oral 400 Output: Urine Catheter Amount 300 Other: Urine Appearance Cloudy Clear Clear Uretheral (Epperson) Cloudy Cloudy Urine Color Dark Yellow Bright Yellow Dark Yellow Uretheral (Epperson) Straw Straw Urine Odor Strong Normal Normal Uretheral (Epperson) Foul Weight 51.71 kg 51.71 kg Patient Weight 06/02/19 05:59 Weight 51.71 kg Medical - DS: Data Labs on day of discharge: Labs from last 24 hours 06/01/19 06/01/19 06/01/19 04:30 04:30 04:30 WBC 7.9 RBC 4.27 Hgb 13.3 Hct 40.8 MCV 95.6 MCH 31.2 MCHC 32.6 RDW 14.9 H Plt Count 173 MPV 8.3 Gran % 75.5 Lymph % (Auto) 15.2 L Frederick % (Auto) 7.7 Eos % (Auto) 1.5 Baso % (Auto) 0.1 Gran # 6.0 Lymph # (Auto) 1.2 L Frederick # (Auto) 0.6 Eos # (Auto) 0.1 Baso # (Auto) 0 PT 26.6 H INR 2.5 H VBG Lactic Acid Sodium 133 Potassium 3.3 Chloride 96 Carbon Dioxide 25 Anion Gap 12.0 BUN 24 H Creatinine 0.8 GFR Calculation 67 Glucose 223 H Hemoglobin A1c Estim Average Glucose Uric Acid 5.7 Calcium 8.8 Phosphorus 2.7 Magnesium 1.6 Total Bilirubin 1.0 Direct Bilirubin 0.2 GGT 27 AST 25 ALT 17 Alkaline Phosphatase 71 Lactate Dehydrogenase 216 Total Protein 6.7 Albumin 3.5 Globulin 3.2 Albumin/Globulin Ratio 1.1 Triglycerides 70 TSH Urine Color Urine Appearance Urine pH Ur Specific Mason Urine Protein Urine Glucose (UA) Urine Ketones Urine Occult Blood Urine Nitrate Urine Bilirubin Urine Urobilinogen Ur Leukocyte Esterase Urine RBC Urine WBC Ur Squamous Epith Cells Urine Bacteria Hyaline Casts Urine Mucus Ur Culture Indicated? 05/31/19 05/31/19 05/31/19 12:35 12:35 11:50 WBC RBC Hgb Hct MCV MCH MCHC RDW Plt Count MPV Gran % Lymph % (Auto) Frederick % (Auto) Eos % (Auto) Baso % (Auto) Gran # Lymph # (Auto) Frederick # (Auto) Eos # (Auto) Baso # (Auto) PT INR VBG Lactic Acid Sodium 136 Potassium 4.4 Chloride 92 L Carbon Dioxide 23 Anion Gap 21.0 H BUN 30 H Creatinine 1.2 H GFR Calculation 41 Glucose 227 H Hemoglobin A1c Estim Average Glucose Uric Acid Calcium 9.9 Phosphorus Magnesium Total Bilirubin 0.9 Direct Bilirubin GGT AST 24 ALT 21 Alkaline Phosphatase 85 Lactate Dehydrogenase Total Protein 8.4 Albumin 4.3 Globulin 4.1 H Albumin/Globulin Ratio 1.0 Triglycerides TSH 0.74 Urine Color Yellow Urine Appearance Cloudy Urine pH 5.0 Ur Specific Mason 1.015 Urine Protein >=500 A Urine Glucose (UA) 50 A Urine Ketones 20 A Urine Occult Blood 0.03 A Urine Nitrate Neg Urine Bilirubin Neg Urine Urobilinogen Neg Ur Leukocyte Esterase 500 A Urine RBC 6 H Urine WBC > 182 H Ur Squamous Epith Cells 1 Urine Bacteria Mod A Hyaline Casts 6 H Urine Mucus Few Ur Culture Indicated? Yes 05/31/19 05/31/19 05/31/19 11:00 11:00 11:00 WBC RBC Hgb Hct MCV MCH MCHC RDW Plt Count MPV Gran % Lymph % (Auto) Frederick % (Auto) Eos % (Auto) Baso % (Auto) Gran # Lymph # (Auto) Frederick # (Auto) Eos # (Auto) Baso # (Auto) PT INR VBG Lactic Acid 2.3 H Sodium TNP Potassium TNP Chloride TNP Carbon Dioxide TNP Anion Gap TNP BUN TNP Creatinine TNP GFR Calculation TNP Glucose TNP Hemoglobin A1c 8.6 H Estim Average Glucose 200 Uric Acid Calcium TNP Phosphorus Magnesium 1.4 L Total Bilirubin TNP Direct Bilirubin GGT AST TNP ALT TNP Alkaline Phosphatase TNP Lactate Dehydrogenase Total Protein TNP Albumin TNP Globulin TNP Albumin/Globulin Ratio TNP Triglycerides TSH Urine Color Urine Appearance Urine pH Ur Specific Mason Urine Protein Urine Glucose (UA) Urine Ketones Urine Occult Blood Urine Nitrate Urine Bilirubin Urine Urobilinogen Ur Leukocyte Esterase Urine RBC Urine WBC Ur Squamous Epith Cells Urine Bacteria Hyaline Casts Urine Mucus Ur Culture Indicated? Preliminary micro results at discharge 05/31/19 11:50 Urine Culture - Preliminary Urine - Catheterized Gram negative bacillus Medical - DS: A/P - Patient/Caregiver Discharge Instructions Activity: as per physical therapy Diet: Regular Diet Prescriptions: Ciprofloxacin HCl [Cipro] 500 mg PO BID #6 tab - Follow up Plan Follow up with: Maricarmen Kim PA-C [Primary Care Provider] - Disposition: Xfer SNF Prognosis: Fair Rehab Potential: Fair I certify that the patient requires SNF services: Yes Overall status at discharge: patient is progressing back to baseline
[2019-06-01] MEDS: POTASSIUM CHLORIDE 20 MEQ TABLET PO PRN (15:09)
[2019-06-02] MEDS: 0.9 % SODIUM CHLORIDE 10 ML SYRINGE IV SCH ×4 (04:02→21:13)
[2019-06-02] MEDS: LABETALOL 5 MG/ML ML IV PRN ×3 (04:21→22:18)
[2019-06-02 06:50] LABS: INR 2.2 (0.9-1.1); Prothrombin Time 24.5 sec (11.9-14.5)
[2019-06-02] MEDS: INSULIN LISPRO 1 UNIT/0.01 ML UNIT SQ SCH ×4 (07:05→19:56)
[2019-06-02] MEDS: LEVOTHYROXINE 75 MCG TABLET PO SCH (07:06)
--- NOTE | 2019-06-02 07:11 | Internal Med Progress Note ---
Medical - PN: Subj Patient information: Note initiated : 06/02/19 at 7:09 am Service Date, if different from initiated Date: [] Patient: Bel Dudley 84 y/o F admitted on 05/31/19 for weakness. Chief Complaint: [] Interval history: Ms. Dudley is a 84 year old F Who fell recently and was brought into the ED at [facility] where she was evaluated had CT of the head and neck which were negative. She was found to have a UTI and was recommended to be in a wheelchair for the next few days. Sent back in from [place] for worsening altered mental status and hypoxia. However her oxygen saturations were mid mid 90s on room air while here. She was have not found to have a UTI and volume depleted. She did have a brief episode of A. fib RVR which resolved on its own. She is also low on her magnesium. A nd her lactate was mildly elevated. Chest x-ray with some atelectasis but otherwise unremarkable. History is obtained from chart as patient is unable to give any history given her dementia and current state. Also had x-ray of the hip which was unremarkable. Unable to gather review of systems given her underlying dementia 06/01 Did have some agitation and yelling last night. Doing well this morning and mentation much improved. Daughter at bedside. Urine culture growing gram- negative bacillus 06/02 No events overnight. Doing well. Per the cultures from [facility], urine growing E. coli pansensitive. Review of Systems: denies headache/fever/chills/nausea/vomiting/chest or abdominal pain/cough/dyspnea/diarrhea. Otherwise see above. - Constitutional Vitals: Vital Signs Temp Pulse Resp BP Pulse Ox 98.1 F 100 H 20 121/78 96 06/02/19 04:09 06/02/19 06:50 06/02/19 06:50 06/02/19 06:00 06/02/19 06:50 Period Temp Pulse Resp BP Sys/Jara Pulse Ox Last 24 Hr 97.6 F-98.7 F 76-100 16-20 121-169/72-109 93-97 Intake and Output 06/01/19 06/02/19 06/02/19 21:59 05:59 13:59 Intake Total 450 Output Total 450 700 Balance 0 -700 Weight 52.435 kg Intake & Output: Intake & Output 06/01/19 06/02/19 06/02/19 21:59 05:59 13:59 Intake Total 450 Output Total 450 700 Balance 0 -700 Weight 52.435 kg Intake: Oral 450 Output: Urine Catheter Amount 450 700 Other: Meal Lunch Percent of Meal Consumed 50% Urine Appearance Clear Clear Uretheral (Epperson) Clear Urine Color Dark Yellow Straw Bright Yellow Uretheral (Epperson) Straw Urine Odor Normal Normal Stool Size Moderate Stool Color Brown Stool Consistency Formed # of times incontinent of 1 Bowels Exam: General: Awake, No acute Distress Eyes/N/T: EOMI, Head/Neck: neck supple, CV: irreg irreg, No murmurs, Pulm: Clear b/l, no wheezing/rhonchi/rales Abd: soft, nontender, +BS x4 Ext: no clubbing/cyanosis/edema Neuro: Good mentation appears back to baseline answering questions, moves extremities spontaneously Skin: warm/dry Medical - PN: Obj Da - Labs CBC & Chem 7: 06/01/19 04:30 06/01/19 04:30 Labs: Abnormal Lab Results 06/02/19 06/01/19 06/01/19 04:54 04:30 04:30 WBC Hgb RDW Gran % Lymph % (Auto) Gran # Lymph # (Auto) PT 24.5 H 26.6 H INR 2.2 H 2.5 H VBG Lactic Acid Chloride Anion Gap POC BUN BUN 24 H Creatinine Glucose 223 H POC Glucose Hemoglobin A1c POC WB Ioniz Calcium Magnesium Globulin Urine Protein Urine Glucose (UA) Urine Ketones Urine Occult Blood Ur Leukocyte Esterase Urine RBC Urine WBC Urine Bacteria Hyaline Casts 06/01/19 05/31/19 05/31/19 04:30 12:35 11:50 WBC Hgb RDW 14.9 H Gran % Lymph % (Auto) 15.2 L Gran # Lymph # (Auto) 1.2 L PT INR VBG Lactic Acid Chloride 92 L Anion Gap 21.0 H POC BUN BUN 30 H Creatinine 1.2 H Glucose 227 H POC Glucose Hemoglobin A1c POC WB Ioniz Calcium Magnesium Globulin 4.1 H Urine Protein >=500 A Urine Glucose (UA) 50 A Urine Ketones 20 A Urine Occult Blood 0.03 A Ur Leukocyte Esterase 500 A Urine RBC 6 H Urine WBC > 182 H Urine Bacteria Mod A Hyaline Casts 6 H 12/21/19 12/21/19 12/21/19 11:00 11:00 11:00 WBC Hgb RDW Gran % Lymph % (Auto) Gran # Lymph # (Auto) PT 19.2 H INR 1.6 H VBG Lactic Acid 2.3 H Chloride Anion Gap POC BUN BUN Creatinine Glucose POC Glucose Hemoglobin A1c 8.6 H POC WB Ioniz Calcium Magnesium Globulin Urine Protein Urine Glucose (UA) Urine Ketones Urine Occult Blood Ur Leukocyte Esterase Urine RBC Urine WBC Urine Bacteria Hyaline Casts 05/31/19 05/31/19 11:00 11:00 WBC 11.3 H Hgb 15.4 H RDW 15.2 H Gran % 86.2 H Lymph % (Auto) 7.3 L Gran # 9.7 H Lymph # (Auto) 0.8 L PT INR VBG Lactic Acid Chloride Anion Gap POC BUN 42 H BUN Creatinine Glucose POC Glucose 262 H Hemoglobin A1c POC WB Ioniz Calcium 1.02 L Magnesium 1.4 L Globulin Urine Protein Urine Glucose (UA) Urine Ketones Urine Occult Blood Ur Leukocyte Esterase Urine RBC Urine WBC Urine Bacteria Hyaline Casts Meds: Medications Acetaminophen (Tylenol) 650 mg PO Q6HP PRN PRN Reason: PAIN/FEVER > 101 Albuterol/Ipratropium (Duoneb) 3 ml NEB Q4HP PRN PRN Reason: Shortness Of Breath Ceftriaxone Sodium (Rocephin) 1 gm IV DAILY [facility] Last Admin: 06/01/19 09:04 Dose: 1 gm Documented by: Dextrose (Dextrose 50%) 0 ml IV UD PRN PRN Reason: Hypoglycemia Diagnostic Test (Pha) (Accu-Chek) 1 each FS ACHS [facility] Last Admin: 06/02/19 07:03 Dose: 1 each Documented by: Docusate Sodium (Colace) 100 mg PO BID [facility] Last Admin: 06/01/19 20:36 Dose: 100 mg Documented by: Glucose (Insta-Glucose) 15 gm PO PRN PRN PRN Reason: Hypoglycemia Potassium Chloride 40 meq/ (Dextrose) 520 mls @ 130 mls/hr IV UD PRN PRN Reason: Potassium < 3 Magnesium Sulfate (Magnesium Sulfate) 2 gm in 50 mls @ 50 mls/hr IV UD PRN PRN Reason: Magnesium </= 1.6 Last Admin: 06/01/19 15:08 Dose: 50 mls/hr Documented by: Insulin Human Lispro (Humalog) 0 unit SQ ACHS [facility]; Protocol Last Admin: 06/02/19 07:05 Dose: Not Given Documented by: Labetalol HCl (Trandate) 0 mg IV Q2HP PRN PRN Reason: Hypertension Last Admin: 06/02/19 04:21 Dose: 10 mg Documented by: Levothyroxine Sodium (Synthroid) 75 mcg PO ACB [facility] Last Admin: 06/02/19 07:06 Dose: 75 mcg Documented by: Lisinopril (Zestril) 10 mg PO QAM [facility] Last Admin: 06/01/19 09:03 Dose: 10 mg Documented by: Melatonin (Melatonin 3mg Tablet) 3 mg PO HSP PRN PRN Reason: Insomnia Memantine (Namenda) 5 mg PO DAILY [facility] Last Admin: 06/01/19 09:03 Dose: 5 mg Documented by: Metoprolol Succinate ([facility] Xl) [facility] [place] Last Admin: 06/01/19 09:04 Dose: Not Given Documented by: Metoprolol Tartrate (Lopressor) 5 mg IV Q2HP PRN PRN Reason: Tachyarrhythmias HR>110 Ondansetron HCl (Zofran) 4 mg IV Q4HP PRN PRN Reason: Nausea And Vomiting Pneumococcal Polyvalent Vaccine (Pneumovax 23) 0.5 ml IM .ONCE ONE Stop: 06/02/19 10:16 Polyethylene Glycol (Miralax) 17 gm PO DAILYP PRN PRN Reason: Constipation Potassium Chloride (Kdur) 40 meq PO UD PRN PRN Reason: Potssium is 3-3.5 Last Admin: 06/01/19 15:09 Dose: 40 meq Documented by: Potassium Chloride (Kdur) 40 meq PO UD PRN PRN Reason: Potassium < 3 Senna (Senokot) 2 tab PO DAILYP PRN PRN Reason: Constipation Sodium Chloride (Saline Flush) 10 ml IV Q8 [facility] Last Admin: 06/02/19 04:02 Dose: 10 ml Documented by: Warfarin Sodium (Coumadin Per Pharmacy) 1 [place] PO [facility] [place] - PN: A/P - Time Spent With Patient Total time spent is greater than 50% in coordination of care (as documented) at patient's floor/unit and/or counseling patient: - Narrative A/P Narrative: A: *UTI(E. coli), complicated with severe weakness, acute on chronic AMS, and lactic acidosis *Sepsis: -improved *Afib rvr: resolved in ED *Hypomagnesemia: improved *PETER on CKD III: improved *Volume depletion: improved *Dementia, advanced: *Hypothyroidism: *HTN: *DM II: P: -Rocephin to cipro -Replace electrolytes -Continue home lisinopril, as needed BP meds -cont home BB and prn IV -SSI, metformin held for now -pt/ot -ppx: Warfarin per pharmacy
[2019-06-02] MEDS ORDERED: WARFARIN 3 MG TABLET PO SCH ×2 (07:15→09:00)
[2019-06-02] MEDS: MEMANTINE 10 MG TABLET PO SCH (08:59)
[2019-06-02] MEDS: cefTRIAXone 1 GM VIAL IV SCH (08:59)
[2019-06-02] MEDS: DOCUSATE SODIUM 100 MG CAPSULE PO SCH ×2 (09:00→19:54)
[2019-06-02] MEDS: LISINOPRIL 10 MG TABLET PO SCH (09:00)
[2019-06-02] MEDS: METOPROLOL SUCCINATE 50 MG TAB.XL.24H PO SCH (09:00)
[2019-06-02] MEDS ORDERED: FLU VACC QS2019-20(6MOS UP)/PF 60 MCG/0.5 ML SYRINGE IM ONE (10:00)
[2019-06-02] MEDS ORDERED: PNEUMOCOCCAL 23-VAL P-SAC VAC 0.5 ML SYRINGE IM ONE (10:15)
[2019-06-02] MEDS ORDERED: WARFARIN 2 MG TABLET PO ONE (14:00)
[2019-06-02] MEDS ORDERED: LISINOPRIL 20 MG TABLET PO ONE (19:01)
[2019-06-02] MEDS ORDERED: LISINOPRIL 10 MG TABLET ONE (19:05)
[2019-06-03] MEDS: 0.9 % SODIUM CHLORIDE 10 ML SYRINGE IV SCH ×3 (04:35→21:08)
[2019-06-03 06:13] LABS: INR 1.9 (0.9-1.1); Prothrombin Time 21.5 sec (11.9-14.5)
[2019-06-03] MEDS: INSULIN LISPRO 1 UNIT/0.01 ML UNIT SQ SCH ×4 (07:13→21:08)
[2019-06-03] MEDS: LEVOTHYROXINE 75 MCG TABLET PO SCH (07:23)
[2019-06-03] MEDS ORDERED: LISINOPRIL 10 MG TABLET PO SCH (09:00)
[2019-06-03] MEDS: cefTRIAXone 1 GM VIAL IV SCH (09:29)
[2019-06-03] MEDS: MEMANTINE 10 MG TABLET PO SCH (09:30)
[2019-06-03] MEDS: DOCUSATE SODIUM 100 MG CAPSULE PO SCH ×2 (09:30→21:05)
[2019-06-03] MEDS: POTASSIUM CHLORIDE 20 MEQ TABLET PO PRN (09:30)
[2019-06-03] MEDS: METOPROLOL SUCCINATE 50 MG TAB.XL.24H PO SCH (09:30)
[2019-06-03] MEDS ORDERED: WARFARIN 3 MG TABLET PO ONE (14:00)
[2019-06-03] MEDS: LABETALOL 5 MG/ML ML IV PRN ×2 (19:43→23:42)
[2019-06-04] MEDS: LABETALOL 5 MG/ML ML IV PRN (01:57)
[2019-06-04] MEDS: 0.9 % SODIUM CHLORIDE 10 ML SYRINGE IV SCH ×3 (04:56→20:33)
[2019-06-04 06:51] LABS: INR 2.2 (0.9-1.1); Prothrombin Time 23.9 sec (11.9-14.5)
--- NOTE | 2019-06-04 08:31 | Internal Med Progress Note ---
Medical - PN: Subj Patient information: Note initiated : 06/04/19 at 8:28 am Service Date, if different from initiated Date: [] Patient: Bel Dudley 84 y/o F admitted on 05/31/19 for weakness. Chief Complaint: [] Interval history: Ms. Dudley is a 84 year old F Who fell recently and was brought into the ED at [facility] where she was evaluated had CT of the head and neck which were negative. She was found to have a UTI and was recommended to be in a wheelchair for the next few days. Sent back in from [place] for worsening altered mental status and hypoxia. However her oxygen saturations were mid mid 90s on room air while here. She was have not found to have a UTI and volume depleted. She did have a brief episode of A. fib RVR which resolved on its own. She is also low on her magnesium. A nd her lactate was mildly elevated. Chest x-ray with some atelectasis but otherwise unremarkable. History is obtained from chart as patient is unable to give any history given her dementia and current state. Also had x-ray of the hip which was unremarkable. Unable to gather review of systems given her underlying dementia 06/01 Did have some agitation and yelling last night. Doing well this morning and mentation much improved. Daughter at bedside. Urine culture growing gram- negative bacillus 06/02 No events overnight. Doing well. Per the cultures from [facility], urine growing E. coli pansensitive. 06/03 Patient did need some as needed blood pressure medication overnight. Otherwise no overnight events or new complaints. Still waiting for placement Review of Systems: denies headache/fever/chills/nausea/vomiting/chest or abdominal pain/cough/dyspnea/diarrhea. Otherwise see above. - Constitutional Vitals: Vital Signs Temp Pulse Resp BP Pulse Ox 97.5 F 84 16 147/98 96 06/04/19 07:35 06/04/19 07:35 06/04/19 07:35 06/04/19 07:35 06/04/19 07:35 Period Temp Pulse Resp BP Sys/Jara Pulse Ox Last 24 Hr 97.4 F-98.4 F 75-94 14-16 104-164/63-111 95-98 Intake and Output 06/03/19 06/04/19 06/04/19 21:59 05:59 13:59 Intake Total 240 Balance 240 Weight 53.751 kg Intake & Output: Intake & Output 06/03/19 06/04/19 06/04/19 21:59 05:59 13:59 Intake Total 240 Balance 240 Weight 53.751 kg Intake: Oral 240 Exam: General: Awake, No acute Distress Eyes/N/T: EOMI, Head/Neck: neck supple, CV: irreg irreg, No murmurs, Pulm: Clear b/l, no wheezing/rhonchi/rales Abd: soft, nontender, +BS x4 Ext: no clubbing/cyanosis/edema Neuro: Good mentation appears back to baseline answering questions, moves extremities spontaneously Skin: warm/dry Medical - PN: Obj Da - Labs CBC & Chem 7: 06/01/19 04:30 06/01/19 04:30 Labs: Abnormal Lab Results 06/04/19 06/03/19 06/02/19 04:50 05:51 04:54 PT 23.9 H 21.5 H 24.5 H INR 2.2 H 1.9 H 2.2 H Meds: Medications Acetaminophen (Tylenol) 650 mg PO Q6HP PRN PRN Reason: PAIN/FEVER > 101 Albuterol/Ipratropium (Duoneb) 3 ml NEB Q4HP PRN PRN Reason: Shortness Of Breath Ceftriaxone Sodium (Rocephin) 1 gm IV DAILY [facility] Last Admin: 06/03/19 09:29 Dose: 1 gm Documented by: Dextrose (Dextrose 50%) 0 ml IV UD PRN PRN Reason: Hypoglycemia Diagnostic Test (Pha) (Accu-Chek) 1 each FS ACHS [facility] Last Admin: 06/03/19 21:07 Dose: 1 each Documented by: Docusate Sodium (Colace) 100 mg PO BID [facility] Last Admin: 06/03/19 21:05 Dose: 100 mg Documented by: Glucose (Insta-Glucose) 15 gm PO PRN PRN PRN Reason: Hypoglycemia Potassium Chloride 40 meq/ (Dextrose) 520 mls @ 130 mls/hr IV UD PRN PRN Reason: Potassium < 3 Magnesium Sulfate (Magnesium Sulfate) 2 gm in 50 mls @ 50 mls/hr IV UD PRN PRN Reason: Magnesium </= 1.6 Last Admin: 06/01/19 15:08 Dose: 50 mls/hr Documented by: Insulin Human Lispro (Humalog) 0 unit SQ ACHS [facility]; Protocol Last Admin: 06/03/19 21:08 Dose: 2 units Documented by: Labetalol HCl (Trandate) 0 mg IV Q2HP PRN PRN Reason: Hypertension Last Admin: 06/04/19 01:57 Dose: 10 mg Documented by: Levothyroxine Sodium (Synthroid) 75 mcg PO ACB [facility] Last Admin: 06/03/19 07:23 Dose: 75 mcg Documented by: Lisinopril (Zestril) 30 mg PO DAILY [facility] Last Admin: 06/03/19 09:29 Dose: 30 mg Documented by: Melatonin (Melatonin 3mg Tablet) 3 mg PO HSP PRN PRN Reason: Insomnia Memantine (Namenda) 5 mg PO DAILY [facility] Last Admin: 06/03/19 09:30 Dose: 5 mg Documented by: Metoprolol Succinate (Toprol Xl) 50 mg PO QAM [facility] Last Admin: 06/03/19 09:30 Dose: 50 mg Documented by: Metoprolol Tartrate (Lopressor) 5 mg IV Q2HP PRN PRN Reason: Tachyarrhythmias HR>110 Last Admin: 06/02/19 21:07 Dose: 5 mg Documented by: Ondansetron HCl (Zofran) 4 mg IV Q4HP PRN PRN Reason: Nausea And Vomiting Polyethylene Glycol (Miralax) 17 gm PO DAILYP PRN PRN Reason: Constipation Potassium Chloride (Kdur) 40 meq PO UD PRN PRN Reason: Potssium is 3-3.5 Last Admin: 06/03/19 09:30 Dose: 40 meq Documented by: Potassium Chloride (Kdur) 40 meq PO UD PRN PRN Reason: Potassium < 3 Senna (Senokot) 2 tab PO DAILYP PRN PRN Reason: Constipation Sodium Chloride (Saline Flush) 10 ml IV Q8 [facility] Last Admin: 06/04/19 04:56 Dose: 10 ml Documented by: Warfarin Sodium (Coumadin Per Pharmacy) 1 order PO UD [facility] Medical - PN: A/P - Time Spent With Patient Total time spent is greater than 50% in coordination of care (as documented) at patient's floor/unit and/or counseling patient: - Narrative A/P Narrative: A: *UTI(E. coli), complicated with severe weakness, acute on chronic AMS, and lactic acidosis *Sepsis: -improved *Afib rvr: resolved in ED *Hypomagnesemia: improved *PETER on CKD III: improved *Volume depletion: improved *Dementia, advanced: *Hypothyroidism: *HTN: elevated on admit *DM II: P: -Rocephin to cipro -Replace electrolytes -cont home BB(inrease)/ACEI(increase) and prn IV -SSI, -pt/ot -awaiting placement -ppx: Warfarin per pharmacy
[2019-06-04] MEDS: DOCUSATE SODIUM 100 MG CAPSULE PO SCH ×2 (08:51→20:33)
[2019-06-04] MEDS: INSULIN LISPRO 1 UNIT/0.01 ML UNIT SQ SCH ×4 (08:51→20:32)
[2019-06-04] MEDS: LEVOTHYROXINE 75 MCG TABLET PO SCH (08:51)
[2019-06-04] MEDS: MEMANTINE 10 MG TABLET PO SCH (08:51)
[2019-06-04] MEDS: METOPROLOL SUCCINATE 50 MG TAB.XL.24H PO SCH (08:52)
[2019-06-04] MEDS: cefTRIAXone 1 GM VIAL IV SCH (08:52)
[2019-06-04] MEDS: LISINOPRIL 20 MG TABLET PO SCH (08:54)
[2019-06-04] MEDS ORDERED: WARFARIN 3 MG TABLET PO ONE (14:00)
[2019-06-05 05:40] LABS: INR 2.4 (0.9-1.1); Prothrombin Time 25.9 sec (11.9-14.5)
[2019-06-05] MEDS: 0.9 % SODIUM CHLORIDE 10 ML SYRINGE IV SCH (05:52)
[2019-06-05] MEDS: LISINOPRIL 20 MG TABLET PO SCH (08:11)
[2019-06-05] MEDS: LEVOTHYROXINE 75 MCG TABLET PO SCH (08:11)
[2019-06-05] MEDS: METOPROLOL SUCCINATE 50 MG TAB.XL.24H PO SCH (08:11)
[2019-06-05] MEDS: DOCUSATE SODIUM 100 MG CAPSULE PO SCH (08:11)
[2019-06-05] MEDS: INSULIN LISPRO 1 UNIT/0.01 ML UNIT SQ SCH ×2 (08:12→12:16)
[2019-06-05] MEDS: MEMANTINE 10 MG TABLET PO SCH (08:12)
[2019-06-05] MEDS: cefTRIAXone 1 GM VIAL IV SCH (08:13)
[2019-06-05] MEDS ORDERED: WARFARIN 3 MG TABLET PO ONE (14:00)
== END 2019-06-05 14:00 | DRG 872 ==
LOC: ED 10:30 → MEDSUR 16:20
PROVIDERS: ADMIT Internal Medicine; ATTEND Internal Medicine